=== PATIENT | female | born 1980 | race Caucasian/White ===

== ENCOUNTER 2018-08-05 16:27 | Emergency (ER) | payer MEDICAID ==
[~2018-08-05] VITALS: Ht 160 cm; Wt 68.0 kg
[2018-08-05] MEDS ORDERED: ZOLOFT100 MG PO (17:11)
[2018-08-05] MEDS ORDERED: MULTI VITAMIN1 EACH PO ×2 (17:12→17:13)
[2018-08-05] MEDS ORDERED: CYCLOBENZAPRINE10 MG PO (17:12)
== END 2018-08-05 18:58 | disposition home or self-care (01) ==
LOC: ED 16:27
DX: R10.32 Left lower quadrant pain (principal); K21.9 Gastro-esophageal reflux disease without esophagitis; F17.200 Nicotine dependence, unspecified, uncomplicated; Z90.710 Acquired absence of both cervix and uterus; Z88.1 Allergy status to other antibiotic agents; Z79.899 Other long term (current) drug therapy
CPT/HCPCS: 80053; 81001; 85025; 96374; 96375; 99284-25; 99406; J2270; J2405

== ENCOUNTER 2018-09-10 10:45 | Emergency (ER) | payer MEDICAID ==
[~2018-09-10] VITALS: Ht 160 cm; Wt 76.4 kg
[~2018-09-10 10:45] MED LIST: CYCLOBENZAPRINE10 MG PO; MULTI VITAMIN1 EACH PO; ZOLOFT100 MG PO
[2018-09-10] MEDS ORDERED: NAPROSYN500 MG PO (12:46)
[2018-09-10] MEDS ORDERED: CYCLOBENZAPRINE5 MG PO (12:46)
== END 2018-09-10 13:28 | disposition home or self-care (01) ==
LOC: ED 10:45
DX: S29.012A Strain of muscle and tendon of back wall of thorax, initial encounter (principal); F17.200 Nicotine dependence, unspecified, uncomplicated; Z90.710 Acquired absence of both cervix and uterus; Z88.1 Allergy status to other antibiotic agents; Z79.899 Other long term (current) drug therapy; W03.XXXA Other fall on same level due to collision with another person, initial encounter
CPT/HCPCS: 71046; 99283-25